=== PATIENT | male | born 1995 | race Caucasian/White ===

== ENCOUNTER 2021-02-03 00:57 | Emergency (ER) | payer BC ==
[~2021-02-03] VITALS: Ht 177.8 cm; Wt 77.1 kg
[2021-02-03 01:00] VITALS: BP 163/86
--- NOTE | 2021-02-03 01:00 | NUR ---
TO BED AMBULATORY
--- NOTE | 2021-02-03 01:05 | NUR ---
COVERING PRIMARY RN FOR LUNCH. SEE COMPLETE ASSESSMENT.
[2021-02-03] MEDS ORDERED: FLUORESCEIN OPTH STRIP 1 MG OP ONE (01:15)
[2021-02-03] MEDS ORDERED: TETRACAINE HCL/PF 0.5% OPTH 4 ML BTL OP ONE (01:20)
--- NOTE | 2021-02-03 01:20 | NUR ---
ER MD AT BEDSIDE FOR CONTINUATION OF PATIENT CARE.
--- NOTE | 2021-02-03 01:23 | NUR ---
MEDICATION AND WOOD'S LAMP PLACED BEDSIDE FOR ERMD.
[2021-02-03] MEDS ORDERED: ERYT5OIN58 OP (01:38)
[2021-02-03 01:46] VITALS: BP 163/86
--- NOTE | 2021-02-03 01:46 | NUR ---
Patient discharged with v/s stable. Written and verbal after care instructions given and explained. Patient alert, oriented and verbalized understanding of instructions. Ambulatory with steady gait. All questions addressed prior to discharge. ID band removed. Patient advised to follow up with PMD. Rx of ERYTHROMYCIN given. Patient educated on indication of medication including possible reaction and side effects. Opportunity to ask questions provided and answered.
== END 2021-02-03 01:46 | disposition home or self-care (01) ==
LOC: MED 00:57
DX: H10.89 Other conjunctivitis (principal); Z79.2 Long term (current) use of antibiotics
CPT/HCPCS: 99283